=== PATIENT | female | born 1950 | race Caucasian/White ===

== ENCOUNTER 2019-09-16 16:32 | Emergency (ER) | payer OTHER ==
[~2019-09-16] VITALS: Ht 170.2 cm; Wt 65.3 kg
[~2019-09-16 16:32] MED LIST: ASPI-1718 PO; EZET10TA14 PO; FURO-570 PO; LANTUS SUBQ; LEVO0.2T5 PO; SYN.05 PO
[2019-09-16 16:33] VITALS: BP 198/75
[2019-09-16] MEDS ORDERED: FURO-572 PO (16:42)
[2019-09-16] MEDS ORDERED: INSU100I21 SQ ×2 (16:42)
--- NOTE | 2019-09-16 16:50 | NUR ---
PT PLACED IN BED 12 BY EMS.
--- NOTE | 2019-09-16 17:07 | NUR ---
NUNO TO LEG BAG EMPTIED, 600ML MILDLY CLOUDY YELLOW URINE EMPTIED.
--- NOTE | 2019-09-16 17:25 | NUR ---
69 YEAR OLD FEMALE COMPLAINS OF HAVING PALPITATIONS EARLIER IN THE DAY THEN NEARLY PASSING OUT. PATIENT STATE THAT SHE WENT TO HER KNEES WHEN SHE NEARLY PASSED OUT. VISIBLE SCRATCH PRESENT ON LEFT LEG WITHOUT SWELLING OR BLEEDING. EDEMA PRESENT IN LOWER BILATERAL EXTREMITIES. RIGHT LEG WITH NUNO CATHETER. PATIENT DENIES PAIN. PATIENT AOX4, GCS15. HR 62, 99%, BP164/61, RR18. PATIENT BREATHING EVEN AND UNLABORED, SKIN WARM AND DRY. PATIENT HAS DAUGHTER AT BEDSIDE. BED IN LOWEST POSITION, LOCKED, BED RAIL UPX1.
[2019-09-16] MEDS ORDERED: MECLIZINE 25 MG TAB PO ONE (17:45)
--- NOTE | 2019-09-16 18:14 | NUR ---
Patient taken to CT scan via gurney by [employer].
[2019-09-16 18:19] LABS: BASOPHILS % (AUTO) 0.9 % (0.0-2.0); EOSINOPHILS # (AUTO) 0.2 K/uL (0-0.4); EOSINOPHILS % (AUTO) 4.6 % (0.0-4.0); HEMATOCRIT 37.8 % (36-48); LYMPHOCYTES # (AUTO) 1.1 K/uL (2.5-16.5); LYMPHOCYTES % (AUTO) 31.8 % (20.5-51.1); MEAN CORPUSCULAR HEMOGLOBIN 29 pg (27-31); MEAN CORPUSCULAR HGB CONC 32 g/dL (33-37); MEAN CORPUSCULAR VOLUME 91.3 fL (80-94); MONOCYTES # (AUTO) 0.3 K/uL (0.8-1.0); NEUTROPHILS # (AUTO) 1.9 K/uL (1.8-7.7); NEUTROPHILS % (AUTO) 53.7 % (42.2-75.2); PLATELET COUNT (AUTO) 202 K/uL (140-450); RED BLOOD CELL COUNT(AUTO) 4.14 MIL/uL (4.20-5.40); RED CELL DISTRIBUTION WIDTH 14.8 % (11.6-13.7); WHITE BLOOD COUNT (AUTO) 3.5 K/uL (4.8-10.8)
[2019-09-16 18:22] LABS: APPEARANCE,URINE CLEAR (CLEAR); BILIRUBIN,URINE NEGATIVE (NEGATIVE); BLOOD, URINE NEGATIVE (NEGATIVE); COLOR,URINE YELLOW (YELLOW); LEUKOCYTE ESTERASE ,URINE NEGATIVE (NEGATIVE); NITRITE, URINE POSITIVE (NEGATIVE); UGLUCOSE NEGATIVE (NEGATIVE)
--- NOTE | 2019-09-16 18:32 | NUR ---
Patient returned from CT scan.
[2019-09-16 18:37] LABS: ANION GAP 14.1 (8-16); CARBON DIOXIDE 27.8 mmol/L (21-32); CHLORIDE 105 mmol/L (98-107); CREATININE 1.2 mg/dL (0.6-1.3); GFR ARICAN-AMERICAN 57 mL/min (>90); GLUCOSE 137 mg/dL (74-106); POTASSIUM 3.9 mmol/L (3.5-5.1); SODIUM SERUM 143 mmol/L (136-145); UREA NITROGEN, BLOOD 33 mg/dL (7-18)
[2019-09-16 18:38] LABS: PROTHROMBIN TIME 11.2 secs (10.8-13.4)
--- NOTE | 2019-09-16 18:41 | NUR ---
PT LAYING IN BED, RR EVEN AND UNLABORED. PT REPORTS SAME SYMPTOMS OF "FLUTTERING" AND LIGHTHEADEDNESS, DENIES ANY PAIN. VS NOTED. ALL NEEDS MET.
[2019-09-16 18:45] LABS: RBC,URINE 0-5 /HPF (0-5); WBC,URINE 0-5 /HPF (0-5)
[2019-09-16 18:50] LABS: ALBUMIN 3.7 g/dL (3.4-5.0); ASPARTATE AMINOTRANSFERASE 16 U/L (15-37); MAGNESIUM 2.2 mg/dL (1.8-2.4); THYROID STIMULATING HORMONE 0.28 uIU/mL (0.34-3.74); TOTAL BILIRUBIN 0.4 mg/dL (0.0-1.0)
[2019-09-16 18:52] LABS: ACETONE, SERUM NEGATIVE (NEGATIVE)
[2019-09-16 19:25] LABS: URIC ACID 3.5 mg/dL (2.6-7.2)
--- NOTE | 2019-09-16 19:50 | NUR ---
PATIENT RESTING WITH EYES CLOSED, BREATHING EVEN AND NONLABORED, WILL CONTINUE TO MONITOR.
--- NOTE | 2019-09-16 22:41 | NUR ---
PATIENT ALERT AND AWAKE. BREATHING EVEN AND UNLABORED. EMPTIED 1000ML CLEAR YELLOW URINE FROM RIGHT LEG NUNO CATHETER.
--- NOTE | 2019-09-16 23:14 | NUR ---
PT LAYING IN BED, RR EVEN AND UNLABORED. PT REPORTS IMPROVEMENT IN LIGHTHEADEDNESS AT THIS TIME. DENIES ANY PAIN. REMAINS FEELING INTERMITTENT "FLUTTERING" IN CHEST. ALL NEEDS MET AT THIS TIME.
--- NOTE | 2019-09-17 00:12 | NUR ---
Patient to be transferred to [facility]. Is being transferred due to SYNCOPE DIAGNOSIS. Receiving facility has accepting physician and available space. ER physician has signed transfer form. Patient or responsible republican has agreed to transfer and signed form. Patient belongings inventoried and will be sent with patient. Copy of nursing notes, lab reports, EKG, Physicians Orders and X-rays to be sent with patient. Report called to CARLA CANO at receiving facility. [facility] ambulance service has been called for transfer. ETA is 30.
[2019-09-17 01:05] VITALS: BP 141/51
--- NOTE | 2019-09-17 01:07 | NUR ---
PATIENT [facility]AKENN FROM [facility], ALERT AND ORIENTED, BREATHING EVEN AND UNLABORED. INDWELLING LEG CATHETER EMPTIED WITH 250ML CLEAR YELLOW URINE
== END 2019-09-17 01:07 | disposition short-term general hospital (02) ==
LOC: MED 16:32
DX: R55 Syncope and collapse (principal); R53.1 Weakness; R42 Dizziness and giddiness; R00.2 Palpitations; E11.9 Type 2 diabetes mellitus without complications; E03.9 Hypothyroidism, unspecified; Z79.4 Long term (current) use of insulin; Z88.0 Allergy status to penicillin; Z91.040 Latex allergy status
CPT/HCPCS: 36415; 70450; 71045; 80053; 81001; 82009; 83036; 83605; 83735; 84443; 84484; 84550; 85025; 85379; 85610; 86140; 93005; 99284; J8597; Q0092